=== PATIENT | male | born 1985 ===

== ENCOUNTER 2020-11-29 03:07 | Emergency (ER) | payer SELFPAY ==
[2020-11-29] MEDS ORDERED: TETANUS,DIPH,PERTUSS(ACELL) VACCINE 0.5 ML SYRINGE IM ONE (03:47)
--- NOTE | 2020-11-29 04:28 | XRay Report ---
RIGHT HAND RADIOGRAPH, 3 VIEWS INDICATION / CLINICAL INFORMATION: cut finger with saw COMPARISON: None available. FINDINGS: Soft tissue swelling and irregularity of the thumb with overlying bandage material in place, which sl ightly obscures fine osseous detail. There is suggestion of a small isolated fracture fragment adjace nt to the thumb distal phalanx. No additional acute displaced fracture or dislocation identified. Signer Name: Mila Mcdonnell MD Signed: 11/29/2020 4:23 AM Workstation Name: [id number]
[2020-11-29] MEDS ORDERED: LIDOCAINE-MPF (1%) 10 MG/1 ML VIAL 5 ML INFILTRATI ONE (05:33)
[2020-11-29] MEDS ORDERED: ONDANSETRON 4 MG ODT TAB PO ONE (05:33)
[2020-11-29] MEDS ORDERED: IBUPROFEN 600 MG TAB PO ONE (05:33)
[2020-11-29] MEDS ORDERED: HYDROcodone/ACETAMINOPHEN 5-325 MG TAB PO ONE (05:33)
--- NOTE | 2020-11-29 05:38 | Emergency Department Report ---
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 Patient states incident happened 3 hours ago. States he dropped a skill saw and caught the blade while still rotating causing thumb laceration. Bleeding was controlled on scene by direct pressure. Range of motion remains intact,. Current pain level is 4/10. Last tetanus shot unknown. MD Complaint: Injury to:: right - Related Data Previous Rx's Medication Instructions Recorded Last Taken Type HYDROcodone/APAP 5-325 [[place] 1 each PO Q6HR PRN #12 tablet 11/29/20 Unknown Rx 5-325 mg TAB] cephALEXin [Keflex] 500 mg PO Q8HR 7 Days #21 cap 11/29/20 Unknown Rx Allergies Allergy/AdvReac Type Severity Reaction Status Date / Time No Known Allergies Allergy Unverified 11/29/20 03:28 ED Review of Systems ROS: Stated complaint: RT THUMB LACERATION Other details as noted in HPI Constitutional: denies: chills, fever Eyes: denies: eye pain, eye discharge, vision change ENT: denies: ear pain, throat pain Respiratory: denies: cough, shortness of breath, wheezing Cardiovascular: denies: chest pain, palpitations Endocrine: no symptoms reported Gastrointestinal: denies: abdominal pain, nausea, diarrhea Genitourinary: denies: urgency, dysuria Musculoskeletal: other (right thumb laceration) Skin: denies: rash, lesions Neurological: denies: headache, weakness, paresthesias Psychiatric: as per HPI Hematological/Lymphatic: denies: easy bleeding, easy bruising ED Past Medical Hx - Past Medical History Previous Medical History?: No - Surgical History Past Surgical History?: No - Social History Smoking Status: Current Every Day Smoker Substance Use Type: None - Medications Home Medications: Home Medications Medication Instructions Recorded Confirmed Last Taken Type HYDROcodone/APAP 5-325 [[place] 1 each PO Q6HR PRN #12 tablet 11/29/20 Unknown Rx 5-325 mg TAB] cephALEXin [Keflex] 500 mg PO Q8HR 7 Days #21 cap 11/29/20 Unknown Rx ED Physical Exam - General Limitations: No Limitations General appearance: alert, in no apparent distress - Head Head exam: Present: atraumatic, normocephalic - Eye Eye exam: Present: normal appearance, EOMI Pupils: Present: normal accommodation - ENT ENT exam: Present: normal exam - Neck Neck exam: Present: normal inspection, full ROM. Absent: tenderness - Respiratory Respiratory exam: Present: normal lung sounds bilaterally. Absent: respiratory distress, wheezes - Cardiovascular Cardiovascular Exam: Present: regular rate, normal rhythm, normal heart sounds. Absent: systolic murmur, diastolic murmur, rubs, gallop - GI/Abdominal GI/Abdominal exam: Present: soft, normal bowel sounds. 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 Absent: tenderness - Neurological Exam Neurological exam: Present: alert, oriented X3, CN II-XII intact, normal gait, motor sensory deficit. Absent: reflexes normal - Expanded Neurological Exam Expanded Patient oriented to: Present: person, place, time Speech: Present: fluid speech Motor strength exam: RUE: 5, LUE: 5 Best Eye Response ([place]): (4) open spontaneously Best Motor Response ([place]): (6) obeys commands Best Verbal Response ([place]): (5) oriented [place] Total: 15 - Psychiatric Psychiatric exam: Present: normal affect - Skin Skin exam: Present: warm, dry, normal color, other (laceration as above ). Absent: rash - Laceration /Wound Repair Right Distal Finger Wound Location: upper extremity (Right distal thumb flap 3 cm ) Wound Explored: contaminated Irrigated w/ Saline (ccs): 150 Betadine Prep?: Yes Anesthesia: 1% Lidocaine (2 cc digital block achieved ) Volume Anesthetic (ccs): 2 Wound Debrided: minimal (tingling in his) Wound Repaired With: sutures Suture Size/Type: 3:0, proline (Remains in the meeting) Number of Sutures: 10 (running ) Layer Closure?: No Sterile Dressing Applied?: Yes Progress: Right distal thumb palmar flap approximately 3 cm no nerve tendon or muscle major injury, small bone fragment removed anesthesia via digital block to the right thumb anesthesia was achieved with 2 cc of 1% lidocaine plain, wound irrigated 150 cc of sterile saline, no other foreign body noted, wound closed with 3-0 Prolene times 10 sutures running, edges well approximated, all bleeding is controlled, CMS remains intact range of motion is intact to direct confrontation. RN TRAVELING less than 3 seconds patient given wound care instructions including follow-up with PCP in 2 days for wound check, follow-up with PCP in 10 days for suture removal, signs and symptoms of infection, patient verbalized agreement and understanding with same. Patient tolerated procedure with minimal distress. ED Medical Decision Making - Radiology Data Radiology results: report reviewed, image reviewed FINDINGS: Soft tissue swelling and irregularity of the thumb with overlying bandage material in place, which slightly obscures fine osseous detail. There is suggestion of a small isolated fracture fragment adjacent to the thumb distal phalanx. No additional acute displaced fracture or dislocation identified. Signer Name: Mila Mcdonnell MD Signed: 11/29/2020 4:23 AM Workstation Name: [id number] Transcribed By: [facility] Dictated By: Mila Mcdonnell MD Electronically Authenticated By: Mila Mcdonnell MD Signed Date/Time: 11/29/20 0423 - Medical Decision Making Right thumb laceration flap, distal phalanx fracture right thumb open, see procedure note, all bleeding is controlled, sterile dressing is intact, patient given discharge instructions verbalized understanding of same, patient DC'd home with prescriptions. Patient will follow-up with Ortho in 2 to 3 days, for wound check in 7 to 10 days for suture removal. Patient verbalized agreement and understanding with discharge plan. Patient DC'd home in stable condition at this time. Critical care attestation.: If time is entered above; I have spent that time in minutes in the direct care of this critically ill patient, excluding procedure time. ED Disposition Clinical Impression: Fracture of distal phalanx of thumb Qualifiers: Encounter type: initial encounter Fracture type: open Fracture alignment: nondisplaced Laterality: right Qualified Code(s): S62.524B - Nondisplaced fracture of distal phalanx of right thumb, initial encounter for open fracture Laceration of thumb Qualifiers: Encounter type: initial encounter Damage to nail status: without damage Foreign body presence: with foreign body Laterality: right Qualified Code(s): S61.021A - Laceration with foreign body of right thumb without damage to nail, initial encounter Disposition: TO HOME OR SELFCARE Is pt being admited?: No Does the pt Need Aspirin: No Condition: Stable Instructions: Laceration Care, Adult, [id number], Thumb Fracture Additional Instructions: Take all medications as prescribed, follow up with orthopedics in 2-3 days for wound check and 7-10 days for suture removal. return to emergency for symptoms of infection as discussed. Prescriptions: cephALEXin [Keflex] 500 mg PO Q8HR 7 Days #21 cap HYDROcodone/APAP 5-325 [[place] 5-325 mg TAB] 1 each PO Q6HR PRN #12 tablet PRN Reason: Pain Referrals: CATERINA BEARD MD [Staff Physician] - 3-5 Days Forms: Work/School Release Form(ED) Time of Disposition: 06:28
[2020-11-29 06:35] VITALS: BP 142/70
== END 2020-11-29 06:37 | disposition home or self-care (01) ==
LOC: ED 03:07
DX: S62.521A Displaced fracture of distal phalanx of right thumb, initial encounter for closed fracture (principal); S61.011A Laceration without foreign body of right thumb without damage to nail, initial encounter; F17.200 Nicotine dependence, unspecified, uncomplicated; Z79.899 Other long term (current) drug therapy; W26.9XXA Contact with unspecified sharp object(s), initial encounter; Y93.89 Activity, other specified; Y92.89 Other specified places as the place of occurrence of the external cause; Y99.8 Other external cause status
CPT/HCPCS: 90471; 90715; Q0162

== ENCOUNTER 2020-12-07 19:36 | Emergency (ER) | payer SELFPAY ==
--- NOTE | 2020-12-07 21:13 | Emergency Department Report ---
ED General Adult HPI - General Stated complaint: RT HAND INJURY Time Seen by Provider: 12/07/20 20:43 - History of Present Illness Initial comments: 35-year-old male returns emergency department complaining of continued pain to the right thumb/hand after trying to catch a fabric machine and accidentally grabbing the blade resulting in a laceration and partial avulsion of the thumb region. [place] [address] XRay Report Signed Patient: PREET QUINTEROS JR MR#: [id number] : 1985 Acct:[id number] Age/Sex: 35 / M ADM Date: 11/29/20 Loc: ED Attending Dr: Ordering Physician: FIDELIA DANG III, MD Date of Service: 11/29/20 Procedure(s): XR hand 3+V RT Accession Number(s): [id number] cc: FIDELIA DANG III, MD Fluoro Time In Minutes: RIGHT HAND RADIOGRAPH, 3 VIEWS INDICATION / CLINICAL INFORMATION: cut finger with saw COMPARISON: None available. FINDINGS: Soft tissue swelling and irregularity of the thumb with overlying bandage material in place, which slightly obscures fine osseous detail. There is suggestion of a small isolated fracture fragment adjacent to the thumb distal phalanx. No additional acute displaced fracture or dislocation identified. Signer Name: Mila Mcdonnell MD Signed: 11/29/2020 4:23 AM Workstation Name: [id number] Transcribed By: [facility] Dictated By: Mila Mcdonnell MD Electronically Authenticated By: Mila Mcdonnell MD Signed Date/Time: 11/29/20422 DD/ 0 TD/TT: He was evaluated by nurse practitioner Yinka Noguera and he was he was discharged home on analgesic medications as well as antibiotics however he has not filled these medications due to him losing the prescription so he returns emerge department seeking prescriptions for pain and if needed antimicrobials. He is not yet follow-up with the orthopedic states h= - Related Data Previous Rx's Medication Instructions Recorded Last Taken Type HYDROcodone/APAP 5-325 [[place] 1 each PO Q6HR PRN #12 tablet 11/29/20 Unknown Rx 5-325 mg TAB] cephALEXin [Keflex] 500 mg PO Q8HR 7 Days #21 cap 11/29/20 Unknown Rx Acetaminophen/Codeine [Tylenol 1 tab PO Q6H PRN #14 tab 12/07/20 Unknown Rx /Codeine # 3 tab] cephALEXin [Keflex] 500 mg PO Q8HR #21 cap 12/07/20 Unknown Rx Allergies Allergy/AdvReac Type Severity Reaction Status Date / Time No Known Allergies Allergy Unverified 11/29/20 03:28 ED Review of Systems ROS: Stated complaint: RT HAND INJURY Other details as noted in HPI Comment: All other systems reviewed and negative ED Past Medical Hx - Social History Smoking Status: Current Every Day Smoker Substance Use Type: None - Medications Home Medications: Home Medications Medication Instructions Recorded Confirmed Last Taken Type HYDROcodone/APAP 5-325 [[place] 1 each PO Q6HR PRN #12 tablet 11/29/20 Unknown Rx 5-325 mg TAB] cephALEXin [Keflex] 500 mg PO Q8HR 7 Days #21 cap 11/29/20 Unknown Rx Acetaminophen/Codeine [Tylenol 1 tab PO Q6H PRN #14 tab 12/07/20 Unknown Rx /Codeine # 3 tab] cephALEXin [Keflex] 500 mg PO Q8HR #21 cap 12/07/20 Unknown Rx ED Physical Exam - General General appearance: alert, in no apparent distress - Head Head exam: Present: atraumatic, normocephalic - Eye Eye exam: Present: normal appearance - ENT ENT exam: Present: mucous membranes moist - Neck Neck exam: Present: normal inspection - Respiratory Respiratory exam: Present: normal lung sounds bilaterally. Absent: respiratory distress - Cardiovascular Cardiovascular Exam: Present: regular rate, normal rhythm. Absent: systolic murmur, diastolic murmur, rubs, gallop - GI/Abdominal GI/Abdominal exam: Present: soft, normal bowel sounds - Rectal Rectal exam: Present: deferred - Extremities Exam Extremities exam: Present: normal inspection, tenderness (To the right thumb with palpation and some swelling noted. No discoloration no lymphangitis noted. No wound discharge.) - Back Exam Back exam: Present: normal inspection. Absent: CVA tenderness (R) - Neurological Exam Neurological exam: Present: alert, oriented X3, CN II-XII intact - Psychiatric Psychiatric exam: Present: normal affect, normal mood - Skin Skin exam: Present: warm, dry, intact, normal color. Absent: rash Critical care attestation.: If time is entered above; I have spent that time in minutes in the direct care of this critically ill patient, excluding procedure time. ED Disposition Clinical Impression: Thumb pain, Laceration of thumb, right Disposition: - TO HOME OR SELFCARE Is pt being admited?: No Does the pt Need Aspirin: No Condition: Stable Instructions: Laceration Care, Adult, How to Use Cold Therapy, [id number], Sutured Wound Care, How to Use Cold Therapy Prescriptions: cephALEXin [Keflex] 500 mg PO Q8HR #21 cap Acetaminophen/Codeine [Tylenol /Codeine # 3 tab] 1 tab PO Q6H PRN #14 tab PRN Reason: Pain , Severe (7-10) Referrals: PRIMARY CARE, [Primary Care Provider] - 3-5 Days CATERINA BEARD MD [Staff Physician] - 3-5 Days
[2020-12-07 21:29] VITALS: BP 123/87
== END 2020-12-07 22:38 | disposition home or self-care (01) ==
LOC: ED 19:36
DX: S61.011A Laceration without foreign body of right thumb without damage to nail, initial encounter (principal); F17.200 Nicotine dependence, unspecified, uncomplicated; Z79.899 Other long term (current) drug therapy; X58.XXXA Exposure to other specified factors, initial encounter; Y93.89 Activity, other specified; Y92.89 Other specified places as the place of occurrence of the external cause; Y99.8 Other external cause status
CPT/HCPCS: 99282

== ENCOUNTER 2020-12-14 03:34 | Emergency (ER) | payer SELFPAY ==
[2020-12-14 04:49] VITALS: BP 153/98
[2020-12-14] MEDS ORDERED: SULFAMETHOXAZOLE/TRIMETHOPRIM 800/160MG DS TAB PO ONE (05:45)
[2020-12-14] MEDS ORDERED: IBUPROFEN 600 MG TAB PO ONE (05:45)
[2020-12-14] MEDS ORDERED: ACETAMINOPHEN 500 MG TAB PO ONE (05:45)
--- NOTE | 2020-12-14 05:49 | Emergency Department Report ---
ED General Adult HPI - General Chief complaint: Laceration/Recheck/Suture Stated complaint: SUTURE REMOVAL Source: patient Mode of arrival: Ambulatory Limitations: No Limitations - History of Present Illness Initial comments: Patient is a 35-year-old male with no past medical history presents to the ED for suture removal recently sutured distal right thumb laceration 2 weeks ago. Patient states that his right thumb was caught up on a sharp blade that he mistakenly carried without knowing and which ended up cutting his distal right thumb with distal tuft fracture fragments. Patient states that he was initially treated in this ED 2 weeks ago about 3 hours after the accident occurred and had multiple sutures on his right thumb laceration. Patient states that he however did not feel any prescriptions for pain or prophylactic antibiotic that was given to him since he lost the prescriptions. Patient states that in the last 1 week, the pain and the swelling of his distal right thumb have worsened and 2 days ago he noticed that there was thick yellow purulent discharge draining from the wound with worsening pain. Patient denies fever, chills, nausea, vomiting, numbness and tingling or weakness of right hand or right arm, fall, headache or change in vision. MD Complaint: right thumb infected wound, s/p laceration and fracture -: Sudden, week(s) (2) Location: right, upper extremity (right thumb) Radiation: non-radiation Severity scale (0 -10): 8 Quality: aching, sharp Consistency: constant Improves with: none Worsens with: movement Associated Symptoms: denies other symptoms, rash (swollen painful erythematous maculopapular rash around right thumb wound). denies: confusion, chest pain, cough, diaphoresis, fever/chills, headaches, loss of appetite, malaise, nausea/vomiting, shortness of breath, syncope, other Treatments Prior to Arrival: none - Related Data Previous Rx's Medication Instructions Recorded Last Taken Type HYDROcodone/APAP 5-325 [[place] 1 each PO Q6HR PRN #12 tablet 11/29/20 Unknown Rx 5-325 mg TAB] cephALEXin [Keflex] 500 mg PO Q8HR 7 Days #21 cap 11/29/20 Unknown Rx Acetaminophen/Codeine [Tylenol 1 tab PO Q6H PRN #14 tab 12/07/20 Unknown Rx /Codeine # 3 tab] cephALEXin [Keflex] 500 mg PO Q8HR #21 cap 12/07/20 Unknown Rx Ibuprofen [Motrin] 800 mg PO Q8HR PRN #30 tablet 12/14/20 Unknown Rx Sulfamethoxazole/Trimethoprim 1 each PO Q12H #20 tablet 12/14/20 Unknown Rx [Bactrim DS TAB] traMADoL [Ultram] 50 mg PO Q6HR PRN #12 tablet 12/14/20 Unknown Rx Allergies Allergy/AdvReac Type Severity Reaction Status Date / Time No Known Allergies Allergy Unverified 11/29/20 03:28 ED Review of Systems ROS: Stated complaint: SUTURE REMOVAL Other details as noted in HPI Constitutional: denies: chills, fever Eyes: denies: eye pain, eye discharge, vision change ENT: denies: ear pain, throat pain Respiratory: denies: cough, shortness of breath, wheezing Cardiovascular: denies: chest pain, palpitations Endocrine: no symptoms reported Gastrointestinal: denies: abdominal pain, nausea, diarrhea Genitourinary: denies: urgency, dysuria Musculoskeletal: joint swelling, arthralgia (Distal right thumb sutured wound with purulent discharge, swelling and pain), myalgia. denies: back pain Skin: rash (swollen painful erythematous rash on right thumb on a previously sutured wound), change in color, other (swollen painful sutured right thumb laceration wound with thick purulent discharge). denies: lesions Neurological: denies: headache, weakness, paresthesias Psychiatric: denies: anxiety, depression Hematological/Lymphatic: denies: easy bleeding, easy bruising ED Past Medical Hx - Past Medical History Previous Medical History?: No - Surgical History Past Surgical History?: No - Social History Smoking Status: Current Every Day Smoker Substance Use Type: Marijuana - Medications Home Medications: Home Medications Medication Instructions Recorded Confirmed Last Taken Type HYDROcodone/APAP 5-325 [[place] 1 each PO Q6HR PRN #12 tablet 11/29/20 Unknown Rx 5-325 mg TAB] cephALEXin [Keflex] 500 mg PO Q8HR 7 Days #21 cap 11/29/20 Unknown Rx Acetaminophen/Codeine [Tylenol 1 tab PO Q6H PRN #14 tab 12/07/20 Unknown Rx /Codeine # 3 tab] cephALEXin [Keflex] 500 mg PO Q8HR #21 cap 12/07/20 Unknown Rx Ibuprofen [Motrin] 800 mg PO Q8HR PRN #30 tablet 12/14/20 Unknown Rx Sulfamethoxazole/Trimethoprim 1 each PO Q12H #20 tablet 12/14/20 Unknown Rx [Bactrim DS TAB] traMADoL [Ultram] 50 mg PO Q6HR PRN #12 tablet 12/14/20 Unknown Rx ED Physical Exam - General Limitations: No Limitations General appearance: alert, in no apparent distress - Head Head exam: Present: atraumatic, normocephalic, normal inspection - Eye Eye exam: Present: normal appearance, PERRL, EOMI Pupils: Present: normal accommodation - ENT ENT exam: Present: normal exam, normal orophraynx, mucous membranes moist, TM's normal bilaterally, normal external ear exam - Neck Neck exam: Present: normal inspection, full ROM - Respiratory Respiratory exam: Present: normal lung sounds bilaterally. Absent: respiratory distress, wheezes, rales, chest wall tenderness, accessory muscle use, decreased breath sounds - Cardiovascular Cardiovascular Exam: Present: regular rate, normal rhythm, normal heart sounds. Absent: systolic murmur, diastolic murmur, rubs, gallop - GI/Abdominal GI/Abdominal exam: Present: soft, normal bowel sounds. Absent: tenderness, guarding, rebound, hyperactive bowel sounds, hypoactive bowel sounds - Extremities Exam Extremities exam: Present: normal inspection, tenderness (palpable severely tender mildly swollen distal right thumb recently sutured laceration wound with mild purulent discharge), normal capillary refill, joint swelling. Absent: calf tenderness - Back Exam Back exam: Present: normal inspection, full ROM. Absent: tenderness, CVA tenderness (R), CVA tenderness (L), muscle spasm, paraspinal tenderness, vertebral tenderness - Neurological Exam Neurological exam: Present: alert, oriented X3, CN II-XII intact, normal gait, reflexes normal - Psychiatric Psychiatric exam: Present: normal affect, normal mood - Skin Skin exam: Present: warm, dry, intact, normal color. Absent: rash ED Course Vital Signs 12/14/20 04:47 Temperature 98.3 F Pulse Rate 96 H Respiratory 18 Rate Blood Pressure 153/98 O2 Sat by Pulse 100 Oximetry ED Medical Decision Making - Medical Decision Making This is a 35-year-old male with no past medical history presents to the ED for suture removal recently sutured distal right thumb laceration 2 weeks ago. Patient states that his right thumb was caught up on a sharp blade that he mistakenly carried without knowing and which ended up cutting his distal right thumb with distal tuft fracture fragments. Patient states that he was initially treated in this ED 2 weeks ago about 3 hours after the accident occurred and had multiple sutures on his right thumb laceration. Patient states that he however did not feel any prescriptions for pain or prophylactic antibiotic that was given to him since he lost the prescriptions. Patient states that in the last 1 week, the pain and the swelling of his distal right thumb have worsened and 2 days ago he noticed that there was thick yellow purulent discharge draining from the wound with worsening pain. In the ED, patient is alert and oriented x3 and is not in any distress but appears to be in significant pain. Patient was treated for pain in the ED and also given initial oral antibiotics. The right thumb sutured wound was cleaned thoroughly and the suture material was removed successfully. Patient tolerated procedure with great difficulty because of worsening pain. The wound was then dressed appropriately and the patient will discharge home with a prescription of pain medications and antibiotics and was advised to ensure that he feels a prescription and take the antibiotics as advised. Patient was however advised to return to the ED immediately if symptoms get worse. Patient was also given a referral to the orthopedic surgeon Dr. Wang for follow-up, and was also encouraged to follow- up with his primary care physician in 5 to 7 days for reevaluation. - Differential Diagnosis Cellulitis; infected laceration; right thumb fracture Critical care attestation.: If time is entered above; I have spent that time in minutes in the direct care of this critically ill patient, excluding procedure time. ED Disposition Clinical Impression: Laceration of right thumb with infection Qualifiers: Encounter type: initial encounter Qualified Code(s): S61.011A - Laceration without foreign body of right thumb without damage to nail, initial encounter Disposition: - TO HOME OR SELFCARE Is pt being admited?: No Does the pt Need Aspirin: No Condition: Stable Instructions: Cellulitis, Adult, [id number], Laceration Care, Adult, Easy-to- Read, Sutured Wound Care, [id number] Additional Instructions: TAKE MEDICATIONS WITH FOOD, DRINK PLENTY OF FLUIDS AND FOLLOW UP WITH YOUR PRIMARY CARE PHYSICIAN IN -10 FOR REEVALUATION. RETURN TO THE ED IMMEDIATELY IF SYMPTOMS GET WORSE. CONSIDER FOLLOWING UP WITH THE ORTHOPEDIC SURGEON DR. WANG ON Wednesday Prescriptions: Sulfamethoxazole/Trimethoprim [Bactrim DS TAB] 1 each PO Q12H #20 tablet Ibuprofen [Motrin] 800 mg PO Q8HR PRN #30 tablet PRN Reason: Pain , Severe (7-10) traMADoL [Ultram] 50 mg PO Q6HR PRN #12 tablet PRN Reason: Pain Referrals: [facility] [Provider Group] - 3-5 Days CATERINA WANG MD [Staff Physician] - 3-5 Days Time of Disposition: 05:48 Print Language: ROMANIAN
== END 2020-12-14 06:40 | disposition home or self-care (01) ==
LOC: ED 03:34
DX: S61.011A Laceration without foreign body of right thumb without damage to nail, initial encounter (principal); F17.200 Nicotine dependence, unspecified, uncomplicated; F12.90 Cannabis use, unspecified, uncomplicated; Z79.899 Other long term (current) drug therapy; W26.8XXA Contact with other sharp object(s), not elsewhere classified, initial encounter; Y93.89 Activity, other specified; Y92.89 Other specified places as the place of occurrence of the external cause; Y99.8 Other external cause status
CPT/HCPCS: 99281

== ENCOUNTER 2020-12-29 17:09 | Emergency (ER) | payer SELFPAY | END 2020-12-29 19:10 | disposition left against medical advice (07) | LOC: ED 17:09 | DX: Z48.02 Encounter for removal of sutures (principal); Z53.21 Procedure and treatment not carried out due to patient leaving prior to being seen by health care provider ==

== ENCOUNTER 2021-06-09 15:57 | Emergency (ER) | payer SELFPAY ==
--- NOTE | 2021-06-09 16:50 | Emergency Department Report ---
- General Chief Complaint: Wound/Laceration Stated Complaint: Laceration Time Seen by Provider: 06/09/21 16:17 Source: patient Mode of arrival: Ambulatory Limitations: No Limitations - History of Present Illness Initial Comments: 36-year-old male presents to the ER today with complaints of laceration to his palmar surface of his right hand. Patient states that this occurred about 1 hour ago. He states that he was jumping a fist when he got cut by the [employer] [place]. He reports pain with movement of his fingers. He denies any numbness tingling or weakness. He states that he received a tetanus vaccine last year. He is right-hand dominant. He reports no additional symptoms at this time. -: Sudden Location: other (right sanford hand ) - Related Data Previous Rx's Medication Instructions Recorded Last Taken Type HYDROcodone/APAP 5-325 [Marion 1 each PO Q6HR PRN #12 tablet 11/29/20 Unknown Rx 5-325 mg TAB] cephALEXin [Keflex] 500 mg PO Q8HR 7 Days #21 cap 11/29/20 Unknown Rx Acetaminophen/Codeine [Tylenol 1 tab PO Q6H PRN #14 tab 12/07/20 Unknown Rx /Codeine # 3 tab] cephALEXin [Keflex] 500 mg PO Q8HR #21 cap 12/07/20 Unknown Rx Sulfamethoxazole/Trimethoprim 1 each PO Q12H #20 tablet 12/14/20 Unknown Rx [Bactrim DS TAB] traMADoL [Ultram] 50 mg PO Q6HR PRN #12 tablet 12/14/20 Unknown Rx Ibuprofen [Motrin 800 MG tab] 800 mg PO Q8HR PRN #30 tablet 06/09/21 Unknown Rx Allergies Allergy/AdvReac Type Severity Reaction Status Date / Time No Known Allergies Allergy Unverified 06/09/21 16:03 ED Review of Systems ROS: Stated complaint: Laceration Other details as noted in HPI Comment: All other systems reviewed and negative Skin: other (laceration right hand ) ED Past Medical Hx - Social History Smoking Status: Current Every Day Smoker Substance Use Type: Marijuana - Medications Home Medications: Home Medications Medication Instructions Recorded Confirmed Last Taken Type HYDROcodone/APAP 5-325 [Marion 1 each PO Q6HR PRN #12 tablet 11/29/20 Unknown Rx 5-325 mg TAB] cephALEXin [Keflex] 500 mg PO Q8HR 7 Days #21 cap 11/29/20 Unknown Rx Acetaminophen/Codeine [Tylenol 1 tab PO Q6H PRN #14 tab 12/07/20 Unknown Rx /Codeine # 3 tab] cephALEXin [Keflex] 500 mg PO Q8HR #21 cap 12/07/20 Unknown Rx Sulfamethoxazole/Trimethoprim 1 each PO Q12H #20 tablet 12/14/20 Unknown Rx [Bactrim DS TAB] traMADoL [Ultram] 50 mg PO Q6HR PRN #12 tablet 12/14/20 Unknown Rx Ibuprofen [Motrin 800 MG tab] 800 mg PO Q8HR PRN #30 tablet 06/09/21 Unknown Rx ED Physical Exam - General Limitations: No Limitations General appearance: alert, in no apparent distress - Head Head exam: Present: atraumatic, normocephalic, normal inspection - Respiratory Respiratory exam: Absent: respiratory distress - Cardiovascular Cardiovascular Exam: Present: regular rate ED Course Vital Signs 06/09/21 06/09/21 06/09/21 16:01 16:53 18:33 Temperature 98.1 F Pulse Rate 118 H Respiratory 16 18 20 Rate Blood Pressure 134/94 [Left] O2 Sat by Pulse 96 97 100 Oximetry - Laceration /Wound Repair Right Volar Hand Wound Location: upper extremity (right volar hand ) Wound Length (cm): 4 Wound's Depth, Shape: superficial Wound Explored: no foreign body removed Irrigated w/ Saline (ccs): 100 Betadine Prep?: Yes Anesthesia: 1% Lidocaine Volume Anesthetic (ccs): 8 Wound Debrided: minimal Wound Repaired With: sutures Suture Size/Type: 4:0, nylon Number of Sutures: 8 Layer Closure?: No Sterile Dressing Applied?: Yes Progress: Patient tolerated procedure well without any complications. ED Medical Decision Making - Radiology Data Radiology results: report reviewed Patient: PREET EDWARDS III MR#: [id number] : 1985 Acct:[id number] Age/Sex: 36 / M ADM Date: 06/09/21 Loc: ED Attending Dr: Ordering Physician: JAYLON ESCAMILLA Date of Service: 06/09/21 Procedure(s): XR hand 3+V RT Accession Number(s): [id number] cc: JAYLON ESCAMILLA Fluoro Time In Minutes: XR hand 3+V RT INDICATION: laceration. COMPARISON: 11/29/2020 FINDINGS: No acute skeletal abnormality. No soft tissue gas or radiodense foreign bodies. IMPRESSION: 1. No acute findings. Signer Name: Song Campuzano MD Signed: 06/09/2021 5:21 PM Workstation Name: [id number] Transcribed By: MEJIA Dictated By: Song Campuzano MD Electronically Authenticated By: Song Campuzano MD Signed Date/Time: 06/09/211720 DD/ 18 TD/TT: - Medical Decision Making X-ray shows nothing acute. Wound repaired by me. See procedure note for detail. No apparent tendon injury on exam or and no neurovascular deficits. X- ray results with patient. Wound care discussed with patient. Patient expressed understanding of all instructions and agree with plan. Patient was stable at time of discharge. Critical care attestation.: If time is entered above; I have spent that time in minutes in the direct care of this critically ill patient, excluding procedure time. ED Disposition Clinical Impression: Hand laceration Disposition: 01 HOME / SELF CARE / HOMELESS Is pt being admited?: No Does the pt Need Aspirin: No Condition: Good Instructions: Laceration Care, Adult, Sutures, Ernesto, or Adhesive Wound Closure Additional Instructions: Keep the wound clean daily with soap and water. Do not use peroxide or alcohol. Apply a thin layer of Neosporin after each cleaning. Take the ibuprofen as prescribed for pain. Sutures will need to be removed in the next 12 to 14 days. Try not to use her hands very frequently for the next 2 to 3 days. Return sooner if there is any signs and symptoms of infection such as increasing pain, swelling and redness or pus drainage. Prescriptions: Ibuprofen [Motrin 800 MG tab] 800 mg PO Q8HR PRN #30 tablet PRN Reason: Pain , Severe (7-10) Referrals: KIKO SCHWARZ MD [Staff Physician] - 06/23/21 Forms: Work/School Release Form(ED) Time of Disposition: 18:35
[2021-06-09 16:54] VITALS: BP 134/94
--- NOTE | 2021-06-09 17:25 | XRay Report ---
XR hand 3+V RT INDICATION: laceration. COMPARISON: 11/29/2020 FINDINGS: No acute skeletal abnormality. No soft tissue gas or radiodense foreign bodies. IMPRESSION: 1. No acute findings. Signer Name: Song Campuzano MD Signed: 06/09/2021 5:21 PM Workstation Name: [id number]
[2021-06-09] MEDS ORDERED: NEOMY 3.5 MG/BACIT 400 UNITS/POLY B 5000 UNITS/GM OINT PACKET TP ONE (18:31)
== END 2021-06-09 18:52 | disposition home or self-care (01) ==
LOC: ED 15:57
DX: S61.411A Laceration without foreign body of right hand, initial encounter (principal); F17.200 Nicotine dependence, unspecified, uncomplicated; F12.10 Cannabis abuse, uncomplicated; W45.8XXA Other foreign body or object entering through skin, initial encounter; Y93.89 Activity, other specified; Y92.89 Other specified places as the place of occurrence of the external cause; Y99.8 Other external cause status
CPT/HCPCS: 99283